=== PATIENT | female | born 1995 | race Caucasian/White ===

== ENCOUNTER 2020-09-04 10:36 | Emergency (ER) | payer SELFPAY ==
[2020-09-04 10:45] VITALS: BP 119/71
--- NOTE | 2020-09-04 11:19 | ER Document Report ---
ED Oral Problem - General Chief Complaint: Toothache Stated Complaint: TOOTH PAIN Time Seen by Provider: 09/04/20 11:12 Notes: CHIEF COMPLAINT: Dental pain for 3 days HPI: 24-year-old female with dental pain right lower wisdom tooth over the last 3 days. No facial swelling no fever. ROS: See HPI - all other systems were reviewed and are otherwise negative Constitutional: no fever Eyes: no drainage, no blurred vision ENT: no runny nose, no sore throat Integumentary: no rash Allergy: no hives MEDICATIONS: I agree with the patient medications as charted by the RN. ALLERGIES: I agree with the allergies as charted by the RN. PAST MEDICAL HISTORY/PAST SURGICAL HISTORY: Reviewed and agree as charted by RN. SOCIAL HISTORY: Reviewed and agree as charted by RN. FAMILY HISTORY: No significant familial comorbid conditions directly related to patient complaint EXAM: Reviewed vital signs as charted by RN. CONSTITUTIONAL: Alert and oriented and responds appropriately to questions. Well-appearing; well-nourished HEAD: Normocephalic; atraumatic EYES: PERRL; Conjunctivae clear, sclerae non-icteric ENT: normal nose; no rhinorrhea; moist mucous membranes; pharynx without lesions noted, no uvula edema or deviation, no tonsillar hypertrophy, phonation normal. No trismus. Right lower wisdom tooth noted to have very slight erythema adjacent to the tooth. No sublingual swelling. NECK: Supple without meningismus; non-tender; no cervical lymphadenopathy, no masses CARD: Capillary refill less than 3 seconds RESP: Normal chest excursion without splinting or tachypnea ABD/GI: non-distended BACK: The back appears normal EXT: Normal ROM in all joints; no cyanosis, no effusions, no edema SKIN: Normal color for age and race; warm; dry; good turgor; no acute lesions noted NEURO: Moves all extremities equally; Motor and sensory function intact PSYCH: The patient's mood and manner are appropriate. Grooming and personal hygiene are appropriate. MDM: 24-year-old female with dental pain. No definitive abscess for drainage. Will place on a course of antibiotics short course of pain medication I did review the patient on the [place] narcotics database with a finding entry. She indicates she will get an emergency dentist on Sunday - Related Data Allergies/Adverse Reactions: amoxicillin Allergy (Verified 09/04/20 11:11) Penicillins Allergy (Verified 09/04/20 11:11) Past Medical History - Social History Smoking Status: Unknown if Ever Smoked Family History: Reviewed & Not Pertinent Physical Exam - Vital signs Vitals: Temp Pulse Resp BP Pulse Ox 98.8 F 92 16 119/71 96 09/04/20 10:43 09/04/20 10:43 09/04/20 10:43 09/04/20 10:43 09/04/20 10:43 Course - Vital Signs Vital signs: Temp Pulse Resp BP Pulse Ox 98.8 F 92 16 119/71 96 09/04/20 10:43 09/04/20 10:43 09/04/20 10:43 09/04/20 10:43 09/04/20 10:43 Discharge - Discharge Clinical Impression: Pain, dental Condition: Stable Disposition: HOME, SELF-CARE Instructions: Toothache ([facility]), Oral Narcotic Medication ([facility]) Additional Instructions: 1. Take the medications as prescribed, if you were written antibiotics make sure that you finish them. 2. You need to follow up with a dentist for definitive evaluation and care of your dental problems 3. return to the ED for any facial swelling, fever > 101, difficulty swallowing or opening the mouth. 4. You may attempt to follow up with [facility] for further care as well as through the dental list provided. 5. you may want to consider a dental discount plan such as [email or web address] to help with costs of dental care as you do not have dental insurance Prescriptions: Tramadol HCl [Ultram 50 mg Tablet] 50 mg PO Q6HP PRN #12 tab PRN Reason: Clindamycin HCl [Cleocin 150 mg Capsule] 150 mg PO Q6 #40 capsule
== END 2020-09-04 11:24 | disposition home or self-care (01) ==
LOC: ER 10:36
DX: K08.9 Disorder of teeth and supporting structures, unspecified (principal); Z88.0 Allergy status to penicillin
CPT/HCPCS: 99283

== ENCOUNTER 2020-09-30 14:45 | Emergency (ER) | payer SELFPAY ==
[2020-09-30] MEDS ORDERED: NORMAL SALINE 1000 ML 1,000 ML IV ONE ×2 (15:32→21:57)
[2020-09-30] MEDS ORDERED: DEXAMETHASONE SOD PHOSPHATE INJ 4 MG/1 ML VIAL IV ONE (15:33)
[2020-09-30] MEDS ORDERED: KETOROLAC TROMETHAMINE INJ/PF 30 MG/1 ML SDV IV ONE ×2 (15:33→21:56)
[2020-09-30] MEDS ORDERED: ACETAMINOPHEN 325 MG TABLET PO ONE (15:34)
--- NOTE | 2020-09-30 15:36 | ER Document Report ---
ED Medical Screen (RME) - General Chief Complaint: Sore Throat Stated Complaint: SORE THROAT Time Seen by Provider: 09/30/20 15:28 Mode of Arrival: Ambulatory Information source: Patient Notes: 25-year-old female presented to ED for cough congestion runny nose sore throat fever. She states the main thing she is here for the sore throat because she cannot swallow she has not been able to drink any fluids yesterday or today. I have ordered her Tylenol and Toradol as well as Decadron as soon as the labs are drawn. Tylenol I would appreciate her getting as soon as possible. The patient was evaluated during the global Covid 19 pandemic, and that diagnosis was suspected/considered upon their initial presentation. Their evaluation, treatment and testing was consistent with current guidelines for patients who present with complaints or symptoms that may be related to Covid 19. I also ordered her fluids for her pulse of 130. States she has not been able to drink fluids. I have greeted and performed a rapid initial assessment of this patient. A comprehensive ED assessment and evaluation of the patient, analysis of test results and completion of medical decision making process will be conducted by an additional ED providers. - Related Data Allergies/Adverse Reactions: amoxicillin Allergy (Verified 09/04/20 11:11) Penicillins Allergy (Verified 09/04/20 11:11) Past Medical History Past Surgical History: Reports: Hx Abdominal Surgery Physical Exam - Vital signs Vitals: Temp Pulse Resp BP Pulse Ox 100.4 F 130 H 16 130/66 H 98 09/30/20 14:46 09/30/20 14:46 09/30/20 14:46 09/30/20 14:46 09/30/20 14:46 Course - Vital Signs Vital signs: Temp Pulse Resp BP Pulse Ox 100.4 F 130 H 16 130/66 H 98 09/30/20 14:46 09/30/20 14:46 09/30/20 14:46 09/30/20 14:46 09/30/20 14:46
--- NOTE | 2020-09-30 16:46 | RADIOLOGY REPORT (SQ) ---
EXAM DESCRIPTION: CHEST SINGLE VIEW IMAGES COMPLETED DATE/TIME: 09/30/2020 4:34 pm REASON FOR STUDY: Cough congestion sore throat low-grade fever COMPARISON: None. EXAM PARAMETERS: NUMBER OF VIEWS: One view. TECHNIQUE: Single frontal radiographic view of the chest acquired. RADIATION DOSE: NA LIMITATIONS: None. FINDINGS: LUNGS AND PLEURA: No opacities, masses or pneumothorax. No pleural effusion. MEDIASTINUM AND HILAR STRUCTURES: No masses. Contour normal. HEART AND VASCULAR STRUCTURES: Heart normal in size. Normal vasculature. BONES: No acute findings. HARDWARE: None in the chest. OTHER: No other significant finding. IMPRESSION: NO ACUTE RADIOGRAPHIC FINDING IN THE CHEST. TECHNICAL DOCUMENTATION: JOB ID: [id number] 2010 [employer]- All Rights Reserved Reading location - IP/workstation name: [email or web address]
[2020-09-30 21:07] LABS: APPEARANCE,URINE SLIGHTLY-CLOUDY; BILIRUBIN,URINE NEGATIVE (NEGATIVE); COLOR,URINE YELLOW; GLUCOSE, URINE NEGATIVE (NEGATIVE); KETONES,URINE 20 mg/dL (NEGATIVE); LEUKOCYTE ESTERASE,URINE TRACE (NEGATIVE); NITRITE,URINE NEGATIVE (NEGATIVE); PROTEIN,URINE NEGATIVE (NEGATIVE); URINE SPECIFIC GRAVITY 1.013; UROBILINOGEN,URINE NEGATIVE mg/dL (<2.0)
[2020-09-30] MEDS ORDERED: DEXAMETHASONE SOD PHOS INJ 10 MG/1 ML VIAL IM ONE (21:56)
--- NOTE | 2020-09-30 22:02 | ER Document Report ---
ED ENT - General Chief Complaint: Sore Throat Stated Complaint: SORE THROAT Time Seen by Provider: 09/30/20 15:28 Primary Care Provider: [facility] [Provider Group] - Follow up as needed Mode of Arrival: Ambulatory - HPI Notes: Patient is 25 y/o female with no medical hx who presents with sore throat that began yesterday. Patient reports difficulty swallowing solids and fluids due to pain but is able to tolerate her secretions. She reports rhinorrhea and mild fever but denies cough, shortness of breath, chest pain, abdominal pain, nausea, and vomiting. She has not taken any medication for relief. Patient is a current everyday smoker and smokes about 1/2 pack a day. She reports occasional alcohol use but denies any recreational drug use. - Related Data Allergies/Adverse Reactions: amoxicillin Allergy (Verified 09/04/20 11:11) Penicillins Allergy (Verified 09/04/20 11:11) Past Medical History - General Information source: Patient - Social History Smoking Status: Current Every Day Smoker Chew tobacco use (# tins/day): No Frequency of alcohol use: Occasional Drug Abuse: None Family History: Reviewed & Not Pertinent Past Surgical History: Reports: Hx Abdominal Surgery Review of Systems - Review of Systems Constitutional: See HPI EENT: See HPI Cardiovascular: No symptoms reported Respiratory: No symptoms reported Gastrointestinal: No symptoms reported Genitourinary: No symptoms reported Female Genitourinary: No symptoms reported Musculoskeletal: No symptoms reported Skin: No symptoms reported Hematologic/Lymphatic: No symptoms reported Neurological/Psychological: No symptoms reported Physical Exam - Vital signs Vitals: Temp Pulse Resp BP Pulse Ox 100.4 F 130 H 16 130/66 H 98 09/30/20 14:46 09/30/20 14:46 09/30/20 14:46 09/30/20 14:46 09/30/20 14:46 - Notes Notes: PHYSICAL EXAMINATION: VITALS: Vitals reviewed and within normal limits. GENERAL: Well-appearing, well-nourished and in no acute distress. HEAD: Atraumatic, normocephalic. EYES: Pupils equal, round, and reactive to light, extraocular movements intact, sclera anicteric, conjunctiva are normal. ENT: Nares patent. Moist mucous membranes. Bilateral tonsilar hypertrophy with exudates. Airway is patent. NECK: Normal range of motion, supple with right anterior cervical lymphadenopathy. LUNGS: Breath sounds clear to auscultation bilaterally and equal. No wheezes, rales, or rhonchi. HEART: Regular, rate, and rhythm without murmurs. ABDOMEN: Soft, nontender, normoactive bowel sounds. No guarding, no rebound. No masses appreciated. EXTREMITIES: Normal range of motion, no pitting or edema. No cyanosis. NEUROLOGICAL: No focal neurological deficits. Moves all extremities spontaneously and on command. PSYCH: Normal mood, normal affect. SKIN: Warm, Dry, normal turgor, no rashes or lesions noted. Course - Re-evaluation Re-evalutation: Presentation of one day of sore throat in an otherwise well-appearing patient. Rapid strep is negative. History and exam are not consistent with a retropharyngeal abscess or peritonsillar abscess. Airway is patent. No difficulty handling oral secretions. Patient tachycardic and mildly febrile on initial vitals. Fever resolved. On exam, bilateral tonsillar hypertrophy with exudates. Right anterior cervical lymphadenopathy. Based on presentation and exam, I am suspicious of strep pharyngitis even with the negative strep test. Patient given a dose of IM decadron, IVF and IV toradol here in the ED. Patient will be started on antibiotics. At this time will discharge with return precautions and follow-up recommendations. Verbal discharge instructions given a the bedside and opportunity for questions given. Medication warnings reviewed. Patient is in agreement with this plan and has verbalized understanding of return precautions and the need for primary care follow-up in the next week. - Vital Signs Vital signs: Temp Pulse Resp BP Pulse Ox 98.7 F 105 H 16 130/62 H 98 10/01/20 00:07 10/01/20 00:07 10/01/20 00:07 10/01/20 00:07 10/01/20 00:07 - Laboratory Results Laboratory Results Interpreted: 09/30/20 20:40 Urine Ketones 20 H Urine Blood MODERATE H Ur Leukocyte Esterase TRACE H Critical Laboratory Results Reviewed: No Critical Results - Radiology Results Critical Radiology Results Reviewed: No Critical Results Discharge - Discharge Clinical Impression: Strep pharyngitis Condition: Stable Disposition: HOME, SELF-CARE Additional Instructions: You have been diagnosed with strep throat based on your symptoms. You have been prescribed azithromycin for antibiotics. Make sure to complete the full course of antibiotics even if your symptoms have resolved. You have also been given a dose of steroids to help with your throat discomfort. Please continue to take ibuprofen 600 mg every 6 hours or Tylenol 1000 mg every 6 hours as needed for throat discomfort. You can also gargle with salt water. Continue to drink plenty of fluids. Follow-up with your primary care doctor in the next several days. Return if you become unable to swallow, have difficulty breathing, pass out, have persistent vomiting that prevents you from being able to tolerate fluids, or have any other symptoms that are concerning to you. Prescriptions: Azithromycin 500 mg PO DAILY 5 Days #5 tablet Referrals: [facility] [Provider Group] - Follow up as needed
[2020-09-30] MEDS ORDERED: AZITHROMYCIN 250 MG TABLET PO ONE (22:53)
[2020-10-01 00:07] VITALS: BP 130/62
== END 2020-09-30 23:30 | disposition home or self-care (01) ==
LOC: ER 14:45
DX: J02.0 Streptococcal pharyngitis (principal); F17.200 Nicotine dependence, unspecified, uncomplicated; Z88.0 Allergy status to penicillin
CPT/HCPCS: 99284; 96372; 96361; 96374; 87070; 87086; 87880; 81025; 81001; 71045; J1885; J7030; J1100